=== PATIENT | male | born 1935 | race Caucasian/White ===

== ENCOUNTER → 2017-03-10 | Outpatient (CLI) | payer MEDICARE, OTHER ==
[~2017-03-10] MED LIST: AMILORIDE HCL-H1 TAB PO; AVANDIA PO; GLUCOPHAGE XR500 MG PO; GLYBURIDE PO; IRON PO; LISINOPRIL PO; VIT B 12; ZOCOR PO
--- NOTE | ~2017-03-10 | TH ---
Unit #: [id number] #: [id number] Patient: ALAN ACEVES [id number] [address] [address] [id number] O MR#: [id number] NAME: ALAN ACEVES : 1935 SEX: M STUDY DATE/TIME: 03/10/2017 UNIT: [facility] ROOM: STUDY DESCRIPTION: Cardiolite imaging Attending Physician: Jared Gonzalez M.D. Referring Physician: Jared Gonzalez M.D. Primary Care Physician: Amparo Chisholm M.D. CARDIOLOGY REPORT EXAM Cardiolite imaging. PROCEDURE This 81-year-old patient received 0.4 mg of Lexiscan intravenously, followed by 32.6 mCi of technetium 99m Cardiolite and images were obtained according to the standard SPECT protocol. For rest images 10.82 mCi of Cardiolite were injected. Images were reviewed in both phases. FINDINGS Overall quality study is excellent. Left ventricular cavity size is normal in both images. There is no lung activity. Right ventricle is normal. Rotating raw data showed no significant artifact, soft tissue attenuation or GI uptake. Review of SPECT images showed normal homogeneous radiotracer concentration throughout the myocardium in both stress and rest images. Gated images showed normal left ventricular wall thickening and wall motion with an estimated left ventricular ejection fraction of 61%. Dictated by... Suzette Jewell M.D. KLJ/gz TD: 03/10/2017 13:21 JOB #: [id number] CARDIOLOGY REPORT Page 1 of 1 X Suzette Jewell MD CARDIOLOGY REPORT
--- NOTE | ~2017-03-10 | ST ---
Unit #: [id number] #: [id number] Patient: ALAN ACEVES [id number] [address] [address] [id number] O MR#: [id number] NAME: ALAN ACEVES : 1935 SEX: M STUDY DATE/TIME: 03/10/2017 UNIT: [facility] ROOM: STUDY DESCRIPTION: Cardiac stress test, lexiscan Attending Physician: Jared Gonzalez M.D. Referring Physician: Jared Gonzalez M.D. Primary Care Physician: Amparo Chisholm M.D. CARDIOLOGY REPORT EXAM Cardiac stress test. PROCEDURE Baseline EKG normal sinus rhythm. Right bundle branch block. Resting heart rate 58 per minute, blood pressure 159/77. This 81-year-old patient received 0.4 mg of Lexiscan intravenously. During the test no ischemic changes noted. No arrhythmias noted. Blood pressure was stable. IMPRESSION 1. Nondiagnostic EKG during Lexiscan. 2. No arrhythmias noted. 3. Stable blood pressure during the test. 4. Correlate with Cardiolite study. Dictated by... Suzette Jewell M.D. KLJ/gz TD: 03/10/2017 13:18 JOB #: [id number] CARDIOLOGY REPORT Page 1 of 1 X Suzette Jewell MD CARDIOLOGY REPORT
== END | disposition home or self-care (01) ==
LOC: CNUC 09:00
DX: I65.29 Occlusion and stenosis of unspecified carotid artery (principal)
CPT/HCPCS: 78452; 93017; A9500; J2785